=== PATIENT | female | born 1970 | race American Indian/Alaskan Native ===

== ENCOUNTER 2016-07-25 10:50 | Emergency (ER) | payer BC ==
[2016-07-25 10:57] VITALS: TEMP 98.3
--- NOTE | 2016-07-25 10:59 | CP.PCM.PN ---
Subjective - Date & Time of Evaluation Date of Evaluation: 07/25/16 Time of Evaluation: 10:40 - Subjective Subjective: Dr. Gallo PGY 1 Rapid Response note Rapid response was called to ICU. EXTENSION SUPERVISOR responded to find a 46 y/o AA F seated in a chair, emotional, surrounded by family members. Per staff present, patient was in emotional distress due to loss of a family member in the ICU. She began to "swoon" and was seated in a chair where she "passed out" momentarily. Patient did not fall to the floor, hit her head, or any other trauma. The patient was responsive when evaluated but emotional. Per family, she has no prior medical/surgical hx or allergies to medications. Her blood pressure was taken and found to be 164/100. Due to family members intervening, a thorough physical assessment and review of systems could not be made. Patient was taken to the ER in a wheelchair and endorsed to ER physician for further evaluation. Objective - Constitutional Appears: In Acute Distress - Head Exam Head Exam: ATRAUMATIC, NORMOCEPHALIC - Eye Exam Eye Exam: EOMI, Normal appearance, PERRL Pupil Exam: NORMAL ACCOMODATION, PERRL - ENT Exam ENT Exam: Mucous Membranes Moist - Respiratory Exam Respiratory Exam: Clear to Ausculation Bilateral. absent: Rales, Rhonchi, Wheezes - Cardiovascular Exam Cardiovascular Exam: Tachycardia, +S1, +S2 - GI/Abdominal Exam GI & Abdominal Exam: Soft, Normal Bowel Sounds. absent: Tenderness - Psychiatric Exam Psychiatric exam: Agitated, Anxious - Skin Skin Exam: Dry, Intact, Warm Assessment and Plan - Assessment and Plan (Free Text) Assessment: 46 y/o AA F with no prior medical/surgical hx with witnessed syncopal episode and emotional distress due to loss of family member. Plan: Taken to ER for further evalutation.
--- NOTE | 2016-07-25 11:13 | ED PDOC ---
Arrival/HPI - General Chief Complaint: Syncope Time Seen by Provider: 07/25/16 10:54 - History of Present Illness Narrative History of Present Illness (Text): 46F brought to ED from ICU after passing out. per pt her sister just underwent a "code blue" and and she was emotionally distraught and felt lightheaded before briefly losing consciousness. her family caught her and put her in a chair. there was no fall or trauma. she says she has passed out in the passed after becoming upset. she reports hx of anxiety and seizures "only when I get upset" and denies any medications. Past Medical History - Infectious Disease Hx of Infectious Diseases: None - Reproductive Menopause: No - Psychiatric Hx Substance Use: No - Anesthesia Hx Anesthesia: No Family/Social History Family/Social History: Other (nc) Smoking Status: Unknown If Ever Smoked Hx Alcohol Use: No Hx Substance Use: No Allergies/Home Meds Allergies/Adverse Reactions: Allergies No Known Allergies Allergy (Verified 07/25/16 11:04) Home Medications: Home Meds Medication Instructions Recorded Confirmed No Known Home Med 07/25/16 07/25/16 Review of Systems - Review of Systems Constitutional: absent: Fevers Eyes: absent: Vision Changes Respiratory: absent: SOB Cardiovascular: absent: Chest Pain Gastrointestinal: absent: Abdominal Pain, Vomiting Neurological: absent: Focal Weakness, Speech Changes Physical Exam Vital Signs Reviewed: Yes Vital Signs Temp Pulse Resp BP Pulse Ox 07/25/16 10:56 98.3 F 90 24 140/83 97 Appearance: Positive for: Well-Appearing, Non-Toxic, Comfortable Pain Distress: None Mental Status: Positive for: Alert and Oriented X 3 Finger Stick Blood Glucose: 109 - Systems Exam Head: Present: Atraumatic, Normocephalic Pupils: Present: PERRL Extroacular Muscles: Present: EOMI Conjunctiva: Present: Normal Mouth: Present: Moist Mucous Membranes Neck: Present: Normal Range of Motion Respiratory/Chest: Present: Clear to Auscultation. No: Respiratory Distress, Accessory Muscle Use Cardiovascular: Present: Regular Rate and Rhythm. No: Murmurs Abdomen: No: Tenderness, Distention Upper Extremity: Present: NORMAL PULSES Lower Extremity: No: Edema Neurological: Present: GCS=15, CN II-XII Intact, Motor Func Grossly Intact, Normal Sensory Function Skin: Present: Warm, Dry Psychiatric: Present: Alert, Oriented x 3 Medical Decision Making ED Course and Treatment: ecg- nsr 83, nl axis, nl int, no acute ischemia 07/25/16 12:30 Pt says she feels much better and wishes to go home. c/o mild headache requests tylenol. - Medication Orders Current Medication Orders: Discontinued Medications Acetaminophen (Tylenol 325mg Tab) 650 mg PO STAT STA Stop: 07/25/16 12:14 Last Admin: 07/25/16 12:30 Dose: 650 MG Disposition/Present on Arrival - Present on Arrival Any Indicators Present on Arrival: No History of DVT/PE: No History of Uncontrolled Diabetes: No Urinary Catheter: No History of Decub. Ulcer: No History Surgical Site Infection Following: None - Disposition Have Diagnosis and Disposition been Completed?: Yes Diagnosis: Syncope Disposition: HOME/ ROUTINE Disposition Time: 12:37 Patient Problems: Current Active Problems Problem Status Diagnosed Syncope Acute Condition: GOOD Discharge Instructions (ExitCare): Syncope (ED) Additional Instructions: Please follow up with your doctor. Return to the ER for any worsening symptoms or for any other concerns. Referrals: Daily Arellano, [Primary Care Provider] - Follow up with primary
[2016-07-25 12:39] VITALS: BP 145/79; PULSE 86; RESP 18; O2SAT 98
--- NOTE | 2016-07-26 11:15 | CARD ---
APPROVED REPORT EKG Measurement Heart [id number] <Conclusion> Sinus rhythm with 1 APC LVH by voltage
== END 2016-07-25 12:44 | disposition home or self-care (01) ==
LOC: MERGE 10:50 → ED 10:50
DX: R55 Syncope and collapse (principal)